=== PATIENT | female | born 1990 | race Caucasian/White ===

== ENCOUNTER 2017-10-27 14:15 | Inpatient (IN) | payer OTHER ==
[2017-10-27] MEDS: SODIUM CHLORIDE 0.9% 1L BAG IV
[2017-10-27 15:28] LABS: ADD MAN DIFF? NO
[2017-10-27] MEDS: morphine 4 MG/ML VIAL IV (15:30)
[2017-10-27] MEDS: ONDANSETRON 4 MG INJ IV (15:30)
[2017-10-27] MEDS: SOD CHLORIDE 0.9% 500 ML IV (15:31)
[2017-10-27 15:33] LABS: BASOPHIL # 0.1 10^3/ul (0.0-0.1); BASOPHILS % 0.3 % (0.0-2.0); EOSINOPHILS % 0.3 % (0.0-7.0); HEMATOCRIT 34.1 % (37.0-47.0); LYMPHOCYTES # 1.9 10^3/ul (0.8-2.9); LYMPHOCYTES % 12.3 % (15.0-51.0); MEAN CORPUSCULAR HGB CONC 32.3 g/dl (32.0-37.0); MEAN CORPUSCULAR VOLUME 83.6 fl (82.0-101.0); MEAN PLATELET VOLUME 10.5 fl (7.4-10.4); MONOCYTE # 0.8 10^3/ul (0.3-0.9); MONOCYTES % 5.4 % (0.0-11.0); NEUTROPHIL # 12.7 10^3/ul (1.6-7.5); NEUTROPHILS % 81.3 % (39.0-77.0); PLATELET COUNT 292 10^3/UL (140-415); RED BLOOD COUNT 4.08 10^6/ul (4.20-5.40); RED CELL DISTRIBUTION WIDTH 13.9 % (11.5-14.5)
[2017-10-27 15:33] LABS: WHITE BLOOD COUNT 15.6 10^3/ul (4.8-10.8)
[2017-10-27 15:38] LABS: ADD UMIC NO; UR ASCORBIC ACID NEGATIVE (NEGATIVE); UR BILIRUBIN (Dip) NEGATIVE (NEGATIVE); UR BLOOD (Dip) NEGATIVE (NEGATIVE); UR CLARITY CLEAR (CLEAR); UR COLOR YELLOW (YELLOW); UR GLUCOSE (Dip) NEGATIVE (NEGATIVE); UR KETONES (Dip) NEGATIVE (NEGATIVE); UR LEUKOCYTE ESTERASE (Dip) NEGATIVE Leu/ul (NEGATIVE); UR NITRITE (Dip) NEGATIVE (NEGATIVE); UR SPECIFIC GRAVITY (Dip) 1.016 (1.003-1.030); UR TOTAL PROTEIN (Dip) NEGATIVE (NEGATIVE); UR UROBILINOGEN (Dip) NEGATIVE (NEGATIVE)
[2017-10-27 15:51] LABS: ALANINE AMINOTRANSFERASE 29 IU/L (13-69); ALBUMIN 4.2 g/dl (3.3-4.9); ALBUMIN/GLOBULIN RATIO 1.07; ALKALINE PHOSPHATASE 62 IU/L (42-121); ANION GAP 14 (8-16); ASPARTATE AMINO TRANSFERASE 18 IU/L (15-46); BILIRUBIN,INDIRECT 0.2 mg/dl (0-1.1); BILIRUBIN,TOTAL 0.2 mg/dl (0.2-1.3); BLOOD UREA NITROGEN 18 mg/dl (7-20); CARBON DIOXIDE 28 mmol/L (21-31); CHLORIDE 105 mmol/L (97-110); CREATININE 0.69 mg/dl (0.44-1.00); GLUCOSE 95 mg/dl (70-220); POTASSIUM 3.1 mmol/L (3.5-5.1); SODIUM 144 mmol/L (135-144); TOTAL PROTEIN 8.1 g/dl (6.1-8.1)
[2017-10-27 15:59] LABS: LIPASE 113 U/L (23-300)
[2017-10-27] MEDS: KETOROLAC 30 MG INJ IV (16:03)
[2017-10-27] MEDS: SOD CHLORIDE 0.9% 1,000 ML IV (17:05)
[2017-10-27] MEDS: PIPER-TAZO 3.375 GM IV (PMX) 100 ML IVPB (17:10)
[2017-10-27] MEDS ORDERED: ONDANSETRON 4 MG INJ IV ×3 (17:30→19:00)
[2017-10-27] MEDS ORDERED: ACETAMINOPHEN 325 MG TAB PO ×2 (17:30→18:30)
[2017-10-27] MEDS ORDERED: ROCURONIUM 50 MG INJ (17:42)
[2017-10-27] MEDS ORDERED: PROPOFOL 20 ML (17:42)
[2017-10-27] MEDS ORDERED: MIDAZOLAM 1 MG/ML 2 ML INJ (17:43)
[2017-10-27] MEDS ORDERED: ROPIVACAINE 0.5 % 30 ML VIAL (17:43)
[2017-10-27] MEDS ORDERED: BUPIVACAINE 0.25% (MPF) 30 ML INJ (17:52)
[2017-10-27] MEDS ORDERED: LIDOCAINE 1%/EPI 30 ML INJ (17:52)
[2017-10-27] MEDS ORDERED: HYDROCORTISONE 100 MG INJ (18:16)
[2017-10-27] MEDS ORDERED: POTASSIUM CHLORIDE 50 ML (18:17)
[2017-10-27] MEDS ORDERED: IBUPROFEN 600 MG TAB PO (18:30)
[2017-10-27] MEDS ORDERED: ONDANSETRON 4 MG INJ (18:48)
[2017-10-27] MEDS ORDERED: KETOROLAC 30 MG INJ (18:48)
[2017-10-27] MEDS ORDERED: SUGAMMADEX SODIUM 200 MG/2 ML VIAL IV (18:48)
[2017-10-27] MEDS ORDERED: DEXAMETHASONE 4 MG/ML 1 ML INJ (18:48)
[2017-10-27] MEDS ORDERED: METOCLOPRAMIDE 10 MG INJ (18:48)
[2017-10-27] MEDS ORDERED: hydrALAzine 20 MG INJ IV (19:00)
[2017-10-27] MEDS ORDERED: METOCLOPRAMIDE 10 MG INJ IV (19:00)
[2017-10-27] MEDS ORDERED: FENTAnyl 50 MCG/ML VIAL IV ×3 (19:00)
[2017-10-27] MEDS ORDERED: HYDROmorphONE (0.2 MG/ML) 10ML SYG IV ×3 (19:00)
[2017-10-27] MEDS ORDERED: MEPERIDINE 25 MG INJ IV (19:00)
[2017-10-27] MEDS ORDERED: OXYCODONE/ACETAMINOPHEN (5/325) TAB PO ×2 (19:00)
[2017-10-27] MEDS ORDERED: LABETALOL HCL 20MG INJ IV (19:00)
[2017-10-27] MEDS ORDERED: DIPHENHYDRAMINE 50 MG INJ IV (19:00)
[2017-10-27] MEDS ORDERED: EPHEDrine SULFATE 50 MG/5 ML SYG IV (19:00)
[2017-10-27] MEDS: D5-NS + KCL 20 MEQ 1,000 ML IV (21:21)
[2017-10-28] MEDS: PIPER-TAZO 3.375 GM IV (PMX) 100 ML IVPB ×3 (01:09→11:57)
[2017-10-28] MEDS: ENOXAPARIN 40 MG/0.4 ML SYG SC (06:41)
[2017-10-28] MEDS: HYDROCODONE/APAP (5/325) TAB PO ×2 (06:42→13:05)
[2017-10-28] MEDS: D5-NS + KCL 20 MEQ 1,000 ML IV (09:16)
[2017-10-28] MEDS: morphine 2 MG INJ IV (14:31)
== END 2017-10-28 16:30 | disposition home or self-care (01) | DRG 343 ==
LOC: FTE 14:15 → REC 17:07 → MS2 20:10
PROC: 0DTJ4ZZ Resection of Appendix, Percutaneous Endoscopic Approach (ICD-10-PCS; principal; 2017-10-27 18:21)
DX: K35.80 Unspecified acute appendicitis (principal)
CPT/HCPCS: 36415; 74176; 80053; 81003; 81025; 83690; 85025; 88304; 96374; 96375; 99285-25

== ENCOUNTER 2017-11-06 15:06 | Outpatient (CLI) | payer OTHER | END 2017-11-06 15:23 | disposition home or self-care (01) | LOC: DCC 15:06 | DX: R10.13 Epigastric pain (principal) | CPT/HCPCS: G0463 ==

== ENCOUNTER 2017-11-13 14:05 | Outpatient (CLI) | payer OTHER | END 2017-11-13 16:43 | disposition home or self-care (01) | LOC: DCC 14:05 | DX: R10.30 Lower abdominal pain, unspecified (principal) | CPT/HCPCS: G0463 ==